=== PATIENT | female | born 1975 | race Caucasian/White ===

== ENCOUNTER 2022-04-21 06:40 | Emergency (ER) | payer OTHER ==
--- OUTSIDE RECORDS SUMMARY | 2022-04-21 06:43 | XMS REPORT | Continuity of Care Document ---
:1975 Author Organization [facility] t Address [address] [place] [address] Care Team Providers Name Role Phone Ivory Pitt DO Attending Clinician Problems Condition Condition Condition Status Onset Resolution Last Treating Co mments Source Name Details Category Date Date Treatment Clinician Date Tobacco Tobacco Problem Active Common use use Spirit disorder disorder [facility] Hyperchole Hyperchole Problem Active C ommon steremia steremia [facility] H/O tubal H/O tubal Problem Active Com mon ligation ligation [facility] H/O H/O Problem Active Common [facility] section section [facility] Mixed Mixed Problem Active Common hyperlipid hyperlipid Sp ruy emia emia [facility] Elevated Elevated Diagnosis Active Com mon BP without BP without Sp ruy diagnosis diagnosis - [facility] I of of [facility] hypertensi hypertensi [facility] Generalize Generalize Problem Active C ommon d anxiety d anxiety Spir it disorder disorder [facility] Adult BMI Adult BMI Diagnosis Active C ommon 27.0-27.9 27.0-27.9 Spir it kg/sq m kg/sq m [facility] No known No known Disease Unive rs active active ity of problems problems [facility] Allergies, Adverse Reactions, Alerts Allergy Allergy Status Severity Reaction(s) Onset Inactive Treating Comm ents Source Name Type Date Date Clinician NO KNOWN Drug Active Univers ALLERGIE Class ity of S [facility] Social History Social Habit Start Date Stop Date Quantity Comments Source [facility] to SARS-CoV-2 Not sure [facility] [place] (event) [facility] [place] Smoking Status Start Date Stop Date Source Unknown if ever smoked [facility] Medications Ordered Filled Start Stop Current Ordering Indication Dosage Frequency Signature Comments Components Source Medication Medication Date Date Medication? Clinician (SIG) Name Name Xanax Xanax 2019- No Aristides 1 tablet Comm on 09-20 Glez prn severe Spirit 00:00: 00:00 anxiety - [facility] 00 :00 [facility] SERTraline Yes 50mg Take 1 Tab U nivers (ZOLOFT) 50 3-05 by mouth ity of mg tablet 00:00: daily. [address] Branch sulfamethox Yes 1{tbl} Take 1 Tab Univers azole-trime 3-05 by mouth ity of thoprim 00:00: every 12 [place] (BACTRIM 00 (twelve) Medical DS) 800-160 hours. Branch mg tablet Simvastatin Simvastatin Yes Aristides 1 tablet Common Glez in the Spirit evening - [facility] Vital Signs Vital Name Observation Time Observation Value Comments Source Systolic blood 2020-05-15 18:16:00 157 mm[Hg] Univer sity of pressure [facility] Diastolic blood 2020-05-15 18:16:00 93 mm[facility]Hg[facility] Heart rate 2020-05-15 18:16:00 81 /min [facility] Body temperature 2020-05-15 18:16:00 36.78 Amy [facility] Respiratory rate 2020-05-15 18:16:00 18 /min [facility] Body height 2020-05-15 18:16:00 160 cm [facility] Body weight 2020-05-15 18:16:00 63.504 kg [facility] BMI 2020-05-15 18:16:00 24.80 kg/m2 [facility] Oxygen saturation in 2020-05-15 18:16:00 98 /min [facility] Arterial blood by [facility] Pulse oximetry Branch Procedures Procedure Date / Time Performed Performing Clinician Elvira e XR KNEE 3 VW LEFT 2020-05-15 19:09:10 Ivory Pitt [facility] CONSENT/REFUSAL FOR 2020-05-15 18:10:32 [facility] Branch TREATMENT NOTICE OF PRIVACY 2020-05-15 18:10:13 Doctor Unassigned, No [facility] [place] [facility] Name Medical [facility] Encounters Start End Encounter Admission Attending Care Care Encounter Source Date/Time Date/Time Type Type Clinicians Facility Department ID 2020-05-15 2020-05-15 Emergency Yoandy, [facility] [id number] Univers 13:28:00 14:42:00 [id number] [facility] [id number] [place] [id number] Branch 2020-05-15 2020-05-15 Emergency X [facility] ERT [id number] Univers 13:10:00 13:10:00 [facility] [place] [facility] 2018-11-05 2018-11-05 [id number] Common 09:15:00 09:15:[address] [facility] 2018-09-20 2018-09-20 [id number] Common 16:05:00 16:05:[address] [facility] 2018-09-20 2018-09-20 [facility] [id number] Common 13:30:00 13:30:[address] [facility] 2018-06-12 2018-06-12 [facility] [id number] Common 10:45:00 10:45:[address] [facility] 2018-02-22 2018-02-22 [facility] [id number] Common 10:15:00 10:15:[address] [facility] 2018-02-08 2018-02-08 [facility] [id number] Common 13:30:00 13:30:00 [facility] 2018-01-11 2018-01-11 [facility] [id number] Common 14:30:00 14:30:[address] [facility] Results Test Description Test Time Test Comments Results Result [facility] e Comments XR KNEE 3 VW Small joint University of LEFT 4 effusion with no [place] [facility] 19:40:42 acute bony Branch abnormality. EXAM: XR KNEE 3 VW LEFT HISTORY: left knee pain COMPARISON: None FINDINGS: Imaging of the knee demonstrates degenerative tibial spine hypertrophy. Nofracture is seen. Joint spaces are preserved. A small effusion is present.Overlying wrap is in place. [facility], Radiant Results Inft User - 05/15/2020 2:41 PM CDTEXAM:XR KNEE 3 VW LEFTHISTORY:left knee pain COMPARISON:NoneFINDI NGS: Imaging of the knee demonstrates degenerative tibial spine hypertrophy. Nofracture is seen. Joint spaces are preserved. A small effusion is present.Overlying wrap is in place.IMPRESSIONSmal l joint effusion with no acute bony abnormality.
[2022-04-21 07:36] LABS: Absolute Lymphocytes (CBC) 1.3 K/uL (0.7-4.9); Hematocrit 41.2 % (36.0-45.0); Lymphocytes % 12.6 % (15.3-44.8); MPV 7.4 fL (7.6-11.3); RBC Red Blood Cell Count 4.73 M/uL (3.86-4.86)
[2022-04-21 08:00] LABS: BUN Blood Urea Nitrogen 10 mg/dL (7-18); Bicarbonate 25 mmol/L (21-32); Glomerular Filtration Rate 114 ml/min (=/>90); Glucose Level 102 mg/dL (74-106); Potassium 3.8 mmol/L (3.5-5.1); Sodium Level 138 mmol/L (136-145); Troponin High Sensitivity < 3.0 pg/mL (<58.9)
--- NOTE | 2022-04-21 08:18 | RAD REPORT ---
EXAM DESCRIPTION: RAD - Chest Single View - 04/21/2022 8:08 am CLINICAL HISTORY: CHEST PAIN COMPARISON: <Comparisons> FINDINGS: Lines: None. Lungs: No evidence of edema or pneumonia. Scattered calcified pulmonary nodules. Pleural: No significant pleural effusions or pneumothorax. Cardiac: The heart size is within normal limits. Bones: No acute fractures. Other: IMPRESSION: No acute cardiopulmonary disease.
--- NOTE | 2022-04-21 08:44 | ER ---
Nurse's Notes [facility] Name: Betty Beth Age: 47 yrs Sex: Female : 1975 Arrival Date: 04/21/2022 Time: 06:42 Bed 7 Private MD: Diagnosis: SARS-associated coronavirus as the cause of diseases classified elsewhere;Chest pain, unspecified;Shortness of breath Presentation: 04/21 07:03 Chief complaint: Patient states: she started having fever and chills since Monday bb and tested positive for Covid on Monday now she is having difficulty breathing and feels like their is pressure on her chest. Coronavirus screen: chills, difficulty breathing, fever, Client presents with at least one sign or symptom that may indicate coronavirus-19. Ebola Screen: No symptoms or risks identified at this time. Initial Sepsis Screen: Does the patient meet any 2 criteria? No. Patient's initial sepsis screen is negative. Does the patient have a suspected source of infection? No. Patient's initial sepsis screen is negative. Risk Assessment: Do you want to hurt yourself or someone else? Patient reports no desire to harm self or others. Onset of symptoms was April 13, 2022. 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 - Social history:: Smoking status: Patient reports the use of cigarette tobacco products, smokes one pack cigarettes per day. Screenin:28 Abuse screen: Denies threats or abuse. Nutritional screening: No deficits noted. tw2 Tuberculosis screening: No symptoms or risk factors identified. Fall Risk None identified. Assessment: 07:30 General: Appears comfortable, Behavior is calm, cooperative, Reports chills for 1-2 aa5 days, feeling ill for 1-2 days. Pain: Complains of pain in chest Pain currently is 7 out of 10 on a pain scale. Quality of pain is described as pressure, Pain began 2-3 days ago. Neuro: Level of Consciousness is awake, alert, obeys commands, Oriented to person, place, time, situation. Cardiovascular: Heart tones S1 S2 present Rhythm is regular. Respiratory: Reports shortness of breath Airway is patent Respiratory effort is even, unlabored, Respiratory pattern is regular, symmetrical, Breath sounds are clear bilaterally. GI: No signs and/or symptoms were reported involving the gastrointestinal system. : No signs and/or symptoms were reported regarding the genitourinary system. EENT: No signs and/or symptoms were reported regarding the EENT system. Derm: Skin is pink, warm \T\ dry. Musculoskeletal: Range of motion: intact in all extremities. 08:53 Reassessment: Patient appears in no apparent distress at this time. No changes from tw2 previously documented assessment. Patient and/or family updated on plan of care and expected duration. Pain level reassessed. Patient is alert, oriented x 3, equal unlabored respirations, skin warm/dry/pink. Vital Signs: 07:03 BP 141 / 87; Pulse 92; Resp 18 S; Temp 98.3(O); Pulse Ox 98% on R/A; Weight 68.04 kg bb (R); Height 5 ft. 3 in. (160.02 cm) (R); Pain 7/10; 08:16 BP 125 / 75; Pulse 78; Resp 17; Pulse Ox 97% on R/A; tw2 07:03 Body Mass Index 26.57 (68.04 kg, 160.02 cm) bb ED Course: 06:42 Patient arrived in ED. bp1 06:59 Morgan Greene DO is Attending Physician. ms3 07:06 Triage completed. bb 07:06 Arm band placed on. bb 07:15 Initial lab(s) drawn, by de, sent to lab. Inserted saline lock: 20 gauge in right hand, bb using aseptic technique. Blood collected. 07:18 Bed in low position. Call light in reach. Pulse ox on. NIBP on. tw2 07:58 Emily Caldera, RN is Primary Nurse. aa5 08:00 No provider procedures requiring assistance completed. aa5 08:09 XRAY Chest (1 view) In Process Unspecified. EDMS 08:43 Aristides Glez DO is Referral Physician. ms3 08:53 IV discontinued, intact, bleeding controlled, No redness/swelling at site. Pressure tw2 dressing applied. Administered Medications: No medications were administered Medication: 08:17 VIS not applicable for this client. tw2 Outcome: 08:43 Discharge ordered by . ms3 08:53 Discharged to home ambulatory, with friend. tw2 08:53 Condition: stable 08:53 Discharge instructions given to patient, friend, Instructed on discharge instructions, follow up and referral plans. Demonstrated understanding of instructions, follow-up care. 08:53 Patient left the ED. tw2 Signatures: Dispatcher [employer] EDMS Sofi Ward RN RN bb Emily Caldera, RN RN aa5 Merced Cesar RN RN tw2 Morgan Greene DO DO ms3 Jesica Yates Corrections: (The following items were deleted from the chart) 07:32 07:23 Emily Caldera, RN is Primary Nurse. aa5 aa5
--- NOTE | 2022-04-21 08:44 | EDPHYS ---
Physician Documentation [facility] Name: Betty Beth Age: 47 yrs Sex: Female : 1975 Arrival Date: 04/21/2022 Time: 06:42 Bed 7 Private MD: ED Physician Morgan Greene HPI: 04/21 07:06 This 47 yrs old Female presents to ER via Unassigned with complaints of Breathing ms3 Difficulty. 07:06 The patient has shortness of breath and the patient has a history of COVID on Monday. ms3 Onset: The symptoms/episode began/occurred 1 week(s) ago. Duration: The symptoms are continuous. The patient's shortness of breath is aggravated by nothing, is alleviated by nothing. Associated signs and symptoms: Pertinent positives: chest pain, dizziness. Severity of symptoms: At their worst the symptoms were moderate in the emergency department the symptoms are unchanged Pain is currently a 7 / 10. 47 yo female with no PMH presents for CP and SOB after being diagnosed with COVID on Monday. Patient states fevers and chills began on last Monday. Patient states her pain is a 7/10 described as pressure on her chest. Patient denies diaphoresis, nausea or vomiting. Patient denies alleviating or inciting factors.. 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 - Social history:: Smoking status: Patient reports the use of cigarette tobacco products, smokes one pack cigarettes per day. ROS: 07:06 Neck: Negative for injury, pain, and swelling, Abdomen/GI: Negative for abdominal pain, ms3 nausea, vomiting, diarrhea, and constipation, MS/Extremity: Negative for injury and deformity, Skin: Negative for injury, rash, and discoloration, Psych: Negative for depression, anxiety, suicide ideation, homicidal ideation, and hallucinations. 07:06 Constitutional: Positive for chills, fever. 07:06 Cardiovascular: Positive for chest pain. 07:06 Respiratory: Positive for shortness of breath. 07:06 All other systems are negative. Exam: 07:06 Constitutional: This is a well developed, well nourished patient who is awake, alert, ms3 and in no acute distress. Eyes: Pupils equal round and reactive to light, extra-ocular motions intact. Lids and lashes normal. Conjunctiva and sclera are non-icteric and not injected. Periorbital areas with no swelling, redness, or edema. Chest/axilla: Normal chest wall appearance and motion. Nontender with no deformity. Cardiovascular: Regular rate and rhythm with a normal S1 and S2. No gallops, murmurs, or rubs. Normal PMI, no JVD. No pulse deficits. Respiratory: Lungs have equal breath sounds bilaterally, clear to auscultation and percussion. No rales, rhonchi or wheezes noted. No increased work of breathing, no retractions or nasal flaring. Abdomen/GI: Soft, non-tender, with normal bowel sounds. No distension or tympany. No guarding or rebound. No evidence of tenderness throughout. Skin: Warm, dry with normal turgor. Normal color with no rashes, no lesions, and no evidence of cellulitis. MS/ Extremity: Pulses equal, no cyanosis. Neurovascular intact. Full, normal range of motion. Psych: Awake, alert, with orientation to person, place and time. Behavior, mood, and affect are within normal limits. 07:25 ECG was reviewed by the Attending Physician. ms3 Vital Signs: 07:03 BP 141 / 87; Pulse 92; Resp 18 S; Temp 98.3(O); Pulse Ox 98% on R/A; Weight 68.04 kg bb (R); Height 5 ft. 3 in. (160.02 cm) (R); Pain 7/10; 08:16 BP 125 / 75; Pulse 78; Resp 17; Pulse Ox 97% on R/A; tw2 07:03 Body Mass Index 26.57 (68.04 kg, 160.02 cm) bb MDM: 07:06 Differential diagnosis: Myocardial Infarction pneumonia, COVID vs Myocarditis. ED ms3 course: PERC = 0. 07:19 Patient medically screened. ms3 08:44 Data reviewed: vital signs, nurses notes, lab test result(s), EKG, radiologic studies, ms3 and as a result, I will discharge patient. Data interpreted: classroom monitor: rate is 80 beats/min, rhythm is normal sinus rhythm, with no ectopy, Interpretation: normal rate, normal rhythm. Counseling: I had a detailed discussion with the patient and/or guardian regarding: the historical points, exam findings, and any diagnostic results supporting the discharge/admit diagnosis, lab results, radiology results, the need for outpatient follow up, to return to the emergency department if symptoms worsen or persist or if there are any questions or concerns that arise at home, smoking cessation. ED course: Discussed labs, EKG, CXR, physical exam findings with patient. Patient to follow-up with Dr. Glez in 2 to 3 days. Patient understands and agrees with plan. All questions were answered. Return precautions discussed include worsening symptoms, or any other concerns. On reevaluation patient symptoms improved, patient is alert and oriented x4, no apparent distress, nontoxic, ambulatory in emergency department, tolerating p.o.. 04/21 07:06 Order name: Basic Metabolic Panel; Complete Time: 08:10 ms3 04/21 07:06 Order name: CBC with Diff ms3 04/21 07:06 Order name: Troponin HS; Complete Time: 08:10 ms3 04/21 07:06 Order name: XRAY Chest (1 view); Complete Time: 08:38 ms3 04/21 07:06 Order name: EKG; Complete Time: 07:07 ms3 04/21 07:06 Order name: Cardiac monitoring; Complete Time: 07:29 ms3 04/21 07:06 Order name: EKG - Nurse/Tech; Complete Time: 07:33 ms3 04/21 07:06 Order name: IV Saline Lock; Complete Time: 07:34 ms3 04/21 07:06 Order name: Labs collected and sent; Complete Time: 07:34 ms3 04/21 07:06 Order name: O2 Per Protocol; Complete Time: 07:25 ms3 04/21 07:06 Order name: O2 Sat Monitoring; Complete Time: 07:25 ms3 EC:25 Rate is 82 beats/min. Rhythm is regular. QRS [place] is Normal. QRS interval is normal. ms3 Clinical impression: NSR w/ Non-specific ST/T Changes. Interpreted by me. Reviewed by me. Administered Medications: No medications were administered Disposition Summary: 04/21/22 08:43 Discharge Ordered Location: Home ms3 Condition: Stable ms3 Diagnosis - SARS-associated coronavirus as the cause of diseases classified elsewhere ms3 - Chest pain, unspecified ms3 - Shortness of breath ms3 Followup: ms3 - With: Aristides Glez DO - When: 2 - 3 days - Reason: Re-evaluation by your physician Discharge Instructions: - Discharge Summary Sheet tw2 - Nonspecific Chest Pain, Adult ms3 - COVID-19 ms3 - Things to Know about the COVID-19 Pandemic - [facility] ms3 - 10 Things You Can Do to Manage Your COVID-19 Symptoms at Home - [facility] ms3 Forms: - Work release form tw2 - Medication Reconciliation Form ms3 - Thank You Letter ms3 - Antibiotic Education ms3 - Prescription Opioid Use ms3 Signatures: Dispatcher [employer] Sofi Shah, RN RN Morgan Toro DO DO ms3
[2022-04-21 09:31] LABS: Blood Morphology Comment NOT SEEN (NOT SEEN); Platelet Estimate ADEQ; White Blood Cell Scan OK (OK)
[2022-04-21 09:34] VITALS: TEMP 98.3
[2022-04-21 09:42] VITALS: BP 125/75; O2SAT 97
--- NOTE | 2022-04-21 14:30 | EKG ---
Test Date: 2022-04-21 Test Time: 07:25:58 Band Tumbler: MIKA MEASUREMENT RESULTS: Intervals: Rate: 82 LA: 178 QRSD: 86 QT: 356 QTc: 415 [place]: P: 77 LA: 178 QRS: 77 T: 93 INTERPRETIVE STATEMENTS: Normal sinus rhythm Nonspecific ST abnormality Abnormal ECG No previous ECG available for comparison Electronically Signed On 04-21-22 14:30:11 CDT by Jerrod White
== END 2022-04-21 08:53 | disposition home or self-care (01) ==
LOC: ER 06:40
DX: U07.1 COVID-19 (principal); R06.02 Shortness of breath; F17.210 Nicotine dependence, cigarettes, uncomplicated
CPT/HCPCS: 36415; 71045; 80048; 84484; 85025; 93005; 99284